=== PATIENT | female | born 2000 | race Caucasian/White ===

== ENCOUNTER → 2025-01-23 | Outpatient (CLI) | payer OTHER ==
[2025-01-23 08:01] LABS: PLATELET COUNT, AUTOMATED 264 10^3/uL (150-450)
[2025-01-23 08:03] LABS: AMORPHOUS SEDIMENT SMALL (NEGATIVE); APPEARANCE, URINE CLOUDY (CLEAR); BACTERIA, URINE AUTO NEGATIVE (NEGATIVE); BILIRUBIN, URINE AUTO NEGATIVE (NEGATIVE); BLOOD, URINE BLOOD NEGATIVE (NEGATIVE); GLUCOSE, URINE (UA) AUTO NEGATIVE (NEGATIVE); KETONE, URINE AUTO TRACE mg/dL (NEGATIVE); LEUKOCYTE ESTERASE, URINE AUTO TRACE (NEGATIVE); MUCUS, URINE SMALL (NEGATIVE); NITRITE, URINE AUTO NEGATIVE (NEGATIVE); PROTEIN, URINE AUTO NEGATIVE (NEGATIVE); RBC, URINE AUTO 1 /HPF (0-3); SPECIFIC GRAVITY URINE AUTO 1.021 (1.002-1.035); SQUAMOUS EPITHELIAL CELL UR AU 13 /HPF (0-6); UROBILINOGEN, URINE AUTO 0.2 mg/dL (0.0-2.0); WBC, URINE AUTO 0 /HPF (0-3)
[2025-01-23 08:31] LABS: TOTAL 25(OH) VITAMIN D 25.1 NG/ML (20.0-100.0)
[2025-01-23 08:32] LABS: FREE T4 1.20 NG/DL (0.89-1.76)
[2025-01-23 08:55] LABS: HIV 1&2 SCREEN NEGATIVE (NEGATIVE)
[2025-01-23 09:04] LABS: HEPATITIS C VIRUS ABY INDEX < 0.02 INDEX (<0.8)
[2025-01-24 14:38] LABS: HERPES ZOSTER, VARICELLA IgG 8.95 S/CO (>=1.00)
[2025-01-26 01:37] LABS: HEMOGLOBINOPATHY EVAL HCT 45.4 % (35.0-45.0); HEMOGLOBINOPATHY EVAL HGB 14.4 g/dL (11.7-15.5); HEMOGLOBINOPATHY EVAL HGB A 97.5 % (>96.0); HEMOGLOBINOPATHY EVAL HGB A2 2.5 % (2.0-3.2); HEMOGLOBINOPATHY EVAL HGB F 0.0 % (<2.0); HEMOGLOBINOPATHY EVAL MCH 29.0 pg (27.0-33.0); HEMOGLOBINOPATHY EVAL MCV 91.5 fL (80.0-100.0); HEMOGLOBINOPATHY EVAL RBC 4.96 Mill/uL (3.80-5.10); HEMOGLOBINOPATHY EVAL RDW 13.1 % (11.0-15.0)
[2025-01-26 20:13] LABS: T PALLIDUM AB (FTA-AB) Nonreactive (Nonreactive)
== END ==
LOC: M LAB 07:13
PROVIDERS: ATTEND Physician Assistant
DX: Z34.01 Encounter for supervision of normal first pregnancy, first trimester (principal)